=== PATIENT | male | born 1960 | race Caucasian/White ===

== ENCOUNTER 2019-10-12 10:45 | Inpatient (IN) | payer OTHER, SELFPAY ==
[2019-10-12] VITALS (9 sets, daily range): BP systolic 112–134; BP diastolic 69–76; PULSE 103–124; RESP 16–24; TEMP 36.7–37.3; O2SAT 93–99; BMI 28.0
--- NOTE | ~2019-10-12 | XR_ITS ---
XR chest 2V 10/15/2019 08:25 Indication: Pneumonia and cough Procedure: 2 view chest Comparison: 10/12/2019 Findings: No significant change to left upper lobe pneumonia. No pleural effusion, edema or pneumotho rax. No acute osseous abnormality. Impression: 1: No significant change to left upper lobe pneumonia. Reviewed, dictated and finalized at location A. Impression: 1: No significant change to left upper lobe pneumonia.
--- NOTE | ~2019-10-12 | CT_ITS ---
EXAMINATION: CTA chest DATE: 10/17/2019 17:34 CDT INDICATION: Right chest pain TECHNIQUE: Computed tomographic angiography (CTA) of the chest was performed with 100 mL Omnipaque-35 0 intravenous contrast. The dose-length product was 385.18 mGy-cm. Maximum intensity projection 3D-re constructions of the aorta and other arteries were constructed by the technologist on a separate work station. Automated exposure control and iterative reconstruction technique were employed. COMPARISON: Chest x-ray dated 10/17/2019 FINDINGS: There is patchy left upper lobe and bilateral lower lobe areas of airspace consolidation, c onsistent with pneumonia with probable superimposed atelectasis. Study is technically adequate withou t evidence for pulmonary embolism. Evaluation of subsegmental pulmonary arteries in the lower lobes l imited by motion. Small left pleural effusion. No significant pericardial effusion. No thoracic lymph adenopathy. No pneumothorax. There is a small right upper lobe nodule coronal image 47 measuring 3 mm , likely benign. Mild thoracic spondylosis with mild levoscoliosis. IMPRESSION: 1. Patchy bilateral airspace disease, most confluent in the left upper lobe, compatible with pneumoni a. 2: Small left pleural effusion. 3: 3 mm right upper lobe nodule, likely benign. Reviewed, dictated and finalized at location A. IMPRESSION: 1. Patchy bilateral airspace disease, most confluent in the left upper lobe, co mpatible with pneumonia. 2: Small left pleural effusion. 3: 3 mm right upper lobe nodule, likely benign.
--- NOTE | ~2019-10-12 | XR_ITS ---
EXAMINATION: XR chest 2V DATE: 10/12/2019 12:53 INDICATION: Left chest pain. Shortness of breath. TECHNIQUE: Frontal and lateral views of the chest were obtained. COMPARISON: CT abdomen and pelvis 01/12/2018 FINDINGS: There are airspace opacities in left mid and lower lung zones. No pleural effusion or pneum othorax. The heart size is normal. IMPRESSION: 1. Airspace opacities in left mid and lower lung zones, consistent with pneumonia. Reviewed, dictated and finalized at location A. FACTS CONSERVATOR IMPRESSION: 1. Airspace opacities in left mid and lower lung zones, consistent with pneumon ia.
--- NOTE | ~2019-10-12 | XR_ITS ---
XR chest 2V DATE: 10/17/2019 08:20 INDICATION: Dyspnea on exertion. Left chest pain. TECHNIQUE: PA and lateral views COMPARISON: 10/15/2019 PA and lateral chest 10/11/2021 view chest FINDINGS: There is persistent but minimally improved left upper lobe infiltrate since 10/15/2019. There is mild infiltrate and/atelectasis at both lung bases. Normal heart size. No hilar or mediastinal enlargement is evident. There is minimal if any pleural ef fusion. No pneumothorax. IMPRESSION: Persistent possibly minimally improved left upper lobe infiltrate since 10/15/2019, but def initely moderately improved since 10/12/2019 Mild bibasilar infiltrate and/atelectasis Reviewed, dictated and finalized at location A. IMPRESSION: Persistent possibly minimally improved left upper lobe infiltrate s dionte 10/15/2019, but definitely moderately improved since 10/12/2019 Mild bibasilar infiltrate and/atelectasis
--- NOTE | 2019-10-12 11:46 | ECG_ITS ---
Measurements Intervals [place] Rate: 112 P: 51 OK: 156 QRS: -33 QRSD: 86 T: 41 QT: 298 QTc: 408 Interpretive Statements SINUS TACHYCARDIA LEFT AXIS DEVIATION DELAYED PRECORDIAL R/S TRANSITION BORDERLINE T WAVE ABNORMALITY- DIFFUSE LEADS BASELINE WANDER- V4-V6 ABNORMAL ECG Electronically Signed On 10-12-2019 13:22:06 EXPORT FREIGHT MANAGER by Craig Ashford D.O.
--- NOTE | 2019-10-12 12:30 | ED.SOB ---
HPI - SOB/Dyspnea General Chief Complaint: Shortness of Breath/Dyspnea Stated Complaint: Cough, congestion Time Seen by Provider: 10/12/19 12:29 Source: patient Mode of arrival: ambulatory Limitations: no limitations History of Present Illness HPI Narrative: A 59 y/o male presents to the ED with c/o left sided CP. Pt states that on 10/10/19 he started to have chills. He took Aspirin and Advil with no relief. The night of 10/10/19 he woke up in a sweat. He adds that yesterday afternoon he started to have the left sided CP that has been constant since. The CP is aggravated with deep breaths and slightly alleviated with heat. He reports slight nonproductive cough, but denies fever. Pt is a former smoker. MD elicited complaint: chest pain (Left sided) Onset (ago): day(s) (1) Timing: constant Exacerbating factors: deep breaths Relieving factors: other (Heat) Associated symptoms: cough (Slight nonproductive) and other (Chills, night sweats) Related Data Allergies Allergy/AdvReac Type Severity Reaction Status Date / Time sulfamethizole Allergy Unknown Unknown Verified 11/22/17 15:09 sulfamethoxazole Allergy Unknown RASH Verified 08/29/18 16:26 trimethoprim Allergy Unknown Unknown Verified 11/22/17 15:09 Review of Systems Review of Systems: All systems reviewed & are unremarkable except as noted in HPI and below Constitutional: Constitutional: Reports chills, Denies fever(s) and Reports night sweats Cardiovascular: Cardiovascular: Reports chest pain (Left sided) Respiratory: Respiratory: Reports cough (Slight nonproductive) PMFSH Past Medical History Medical History (Updated 10/12/19 @ 15:57 by David Cummings MD) Bladder cancer History of chemotherapy Seasonal allergies Surgical History Surgical History (Updated 10/12/19 @ 13:29 by Flora Gaines) History of bladder surgery Resection History of colonoscopy Social History Social History (Updated 10/12/19 @ 13:30 by Flora Gaines) Smoking status: Former smoker Smoking end date: 08/08/15 Alcohol intake: current Exam Const: General: healthy appearing, no acute distress and well developed Nutritional Appearance: well nourished Orientation/consciousness: patient oriented x3 (alert) and Other orientation findings (Alert) Limitations: no limitations HENMT: Head: normocephalic and atraumatic Ears: external ears normal General nose exam: No nasal discharge present and no epistaxis Face and sinus: face symmetric Mouth: Yes lip normal, Yes tongue normal and Yes moist mucous membranes Throat: other (No exudate, no erythema) Eyes: Conjunctivae: conjunctivae normal Sclera: sclerae normal EOM: EOMs intact bilaterally Neck: Neck: full ROM, no lymphadenopathy and supple Thyroid: thyroid normal Chest: Chest palpation & inspection: no tenderness Resp: Effort & Inspection: normal respiratory effort Auscultation: no rales, rhonchi left lower, no wheezes and other (breath sounds equal) Cardio: Rate: tachycardic Rhythm: regular rhythm Heart sounds: no gallops and no murmurs GI: Inspection: non-distended GI Palp: No abdominal tenderness and Yes Soft to palpation Auscultation: other (bowel sounds present) : General: Yes no CVA tenderness Back/Spine/Pelvis: Back: no CVA tenderness Thoracic/Lumbar Spine: thoracic and lumbar spine normal to inspection Skin: General skin exam: normal color and no rashes or lesions noted Neuro: General: patient oriented x3 (alert), moves all extremities and no focal motor deficits Cranial nerves: Yes facial symmetry Speech: normal speech Motor exam (neuro): Motor abnormalities not present Extrem: General: normal to inspection, full ROM and no pedal edema Psych: Affect: normal affect Course Course Emergency Course: Recheck after fluids, BP OK, but remains tachy, and sats ~92-93 w/ ambulation Vital Signs Vital signs: Vital Signs Temperature 37.2 C 10/12/19 11:55 Pulse Rate 114 H 10/12/19 11:55 Respiratory Rate 22 H
[2019-10-12 13:05] LABS: Basophils Absolute Auto 0.1 K/mm3 (0.0-0.1); Basophils Percent Auto 0.6 % (0.2-1.2); Eosinophils Percent Auto 0.1 % (0-4.4); Hematocrit 37.1 % (42.0-52.0); Hemoglobin 12.5 g/dL (14.0-18.0); Immature Granulocyte Absolute 0.51 K/mm3 (0.00-0.031); Immature Granulocyte Percent A 3.7 % (0-0.5); Lymphocytes Absolute Auto 1.41 K/mm3 (0.9-3.2); Lymphocytes Percent Auto 10.1 % (18.3-44.2); Mean Corpuscular HGB Conc 33.7 g/dl (32-36); Mean Corpuscular Hemoglobin 30.7 pg (26-34); Mean Corpuscular Volume 91.2 fl (80-100); Mean Platelet Volume 10.8 fl (7.4-10.4); Monocytes Absolute Auto 0.5 K/mm3 (0.1-0.6); Monocytes Percent Auto 3.5 % (2.6-8.5); Neutrophils Absolute Auto 11.4 K/mm3 (1.3-6.7); Platelet Count Result 182 k/mm3 (150-375); Red Blood Count 4.07 M/mm3 (4.6-6.20); Red Cell Distribution Width 13.2 % (11.5-14.5)
[2019-10-12 13:16] LABS: Blood Urea Nitrogen 27 mg/dL (9-20); Calcium 8.6 mg/dL (8.4-10.2); Carbon Dioxide 25 mmol/L (22-30); Chloride 98 mmol/L (98-107); Estimated Glomerular Filt Rate > 60; Glucose 156 mg/dL (75-110); Potassium 3.5 mmol/L (3.4-5.0); Sodium 132 mmol/L (137-145)
[2019-10-12 13:28] LABS: Troponin I < 0.012 ng/mL (0.000-0.034)
[2019-10-12] MEDS: ALBUTEROL SULFATE NEB 2.5 MG/0.5 ML INH 5 MG INHALATION ×2 (13:44→18:55)
[2019-10-12 14:02] LABS: Lactic Acid Reflex 2.9 mmol/L (0.7-2.1)
[2019-10-12] MEDS: LACTATED RINGERS 1,000 ML 999 ML IV CONT ×3 (15:11→16:22)
[2019-10-12] MEDS: KETOROLAC 30 MG/ML VIAL (*BKC) IV PUSH (16:21)
[2019-10-12 16:49] LABS: Reflex Lactic Acid Yes or No Add Lactic
--- NOTE | 2019-10-12 17:13 | ADMGEN ---
This patient, David Leiva, was admitted to Medical Room 345-01. Patient/family oriented to hospital policies and general routines including ID bracelet, bed and alarms, visiting hours, pain management, procedures, bathroom and other care routines, personal items, smoking policy, room service/diet, and visiting hours. Valuables list has been completed. Information on how to activate the Rapid Response Team has been discussed. Patient/Family are encouraged to report perceived risks to care and to ask questions if they do not understand what they are told or what they should do.
[2019-10-12] MEDS: LACTATED RINGERS 1,000 ML 150 ML IV CONT (17:32)
[2019-10-12 18:32] LABS: Lactic Acid 2.3 mmol/L (0.7-2.1)
--- NOTE | 2019-10-12 20:00 | PM.IMHP ---
H&P: HPI History of Present Illness Chief complaint: Cough, congestion <Ngozi Adan PA-C - Last Filed: 10/12/19 22:34> Narrative: David Leiva is a very pleasant 59-year-old male with history of bladder cancer who presented to the emergency department earlier this afternoon via private vehicle from home for evaluation of shortness of breath and chest pain. Tuesday evening after he returned home from work he began to feel unwell, which generalized malaise, body aches, and chills. He assumed that he had a fever, and took Tylenol as well as Advil cold and sinus with some benefit. He had drenching sweats throughout the night. On , he began experiencing left-sided pleuritic chest pain, worse with deep inspiration. He also notes a mild cough, although it has been nonproductive. He was found to have a fairly large left-sided pneumonia and he is being admitted in this setting. He has not had sick contacts and denies recent travel. He does works in heating and cooling, and notes having works 3 jobs recently where there has been a lot of dust and/or debris. No headache or neck ache. He denies sinus congestion, otalgia, rhinorrhea, and odynophagia. No exertional chest pain. He denies orthopnea. Appetite has been okay and he denies nausea and vomiting. No diarrhea. No dysphagia or concerns for aspiration. <Ngozi Adan PA-C - Last Filed: 10/12/19 22:34> Review of Systems Review of Systems: Narrative: Twelve systems were reviewed with pertinent positives and negatives as per HPI. Except as documented, all other systems were reviewed and are negative. <Ngozi Adan PA-C - Last Filed: 10/12/19 22:34> [facility] Past Medical History Medical History: Medical History (Updated 10/12/19 @ 22:33 by Ngozi Adan PA-C) Bladder cancer Status post TURBT and intravesical chemotherapy. Seasonal allergies <Ngozi Adan PA-C - Last Filed: 10/12/19 22:34> Surgical History Surgical History: Surgical History (Updated 10/12/19 @ 22:29 by Ngozi Adan PA-C) History of colonoscopy S/P bladder tumor excision with fulguration <Ngozi Adan PA-C - Last Filed: 10/12/19 22:34> Family History Family History: Family History Father Cerebrovascular accident Mother Stomach cancer <Ngozi Adan PA-C - Last Filed: 10/12/19 22:34> Social History Social History: Social History (Updated 10/12/19 @ 22:30 by Ngozi Adan PA-C) Social History: The patient lives in his own home in [place]. His 89-year-old father stays there with him. He designates his brother is his surrogate decision maker and wishes to be a full code. He smoked about 3/4 of a pack of cigarettes per day for 30 years and quit in 2015. He drinks perhaps 6 alcoholic beverages a week. No drug use. Smoking packs per day: 0.75 Smoking cigarettes per day: 15.0 Years smoked: 30 Smoking pack-years: 22.50 Smoking status: Former smoker Tobacco type: cigarettes Smoking end date: 08/08/15 Alcohol intake: current Drinks per week: 6 Substance use: never Spiritual care concerns: No Agree to blood products: Yes <Ngozi Adan PA-C - Last Filed: 10/12/19 22:34> Meds Home Medications and Allergies Home medications: Home Medications Medication Instructions Recorded Confirmed Type No Home Medications 10/12/19 10/12/19 History <Ngozi Adan PA-C - Last Filed: 10/12/19 22:34> Allergies/Adverse reactions: Allergies Allergy/AdvReac Type Severity Reaction Status Date / Time sulfamethizole Allergy Unknown Unknown Verified 11/22/17 15:09 sulfamethoxazole Allergy Unknown RASH Verified 08/29/18 16:26 trimethoprim Allergy Unknown Unknown Verified 11/22/17 15:09 <Ngozi Adan PA-C - Last Filed: 10/12/19 22:34> Vital Signs Vital Signs - 24 hr 10/12/19 11:55
[2019-10-12] MEDS: FAMOTIDINE 20 MG/2 ML VIAL IV PUSH (20:31)
[2019-10-12] MEDS: ACETAMINOPHEN 325 MG TABLET 650 MG PO (23:32)
[2019-10-12] MEDS: LACTATED RINGERS 1,000 ML 90 ML IV CONT (23:48)
[2019-10-13] VITALS (12 sets, daily range): BP systolic 121–143; BP diastolic 76–89; PULSE 96–112; RESP 16–22; TEMP 37.1–37.6; O2SAT 93–95
[2019-10-13] MEDS: ALBUTEROL SULFATE NEB 2.5 MG/0.5 ML INH 5 MG INHALATION ×4 (01:34→19:53)
[2019-10-13 05:52] LABS: Basophils Absolute Auto 0.1 K/mm3 (0.0-0.1); Basophils Percent Auto 0.6 % (0.2-1.2); Eosinophils Absolute Auto 0.1 K/mm3 (0-0.3); Eosinophils Percent Auto 0.5 % (0-4.4); Hematocrit 34.9 % (42.0-52.0); Hemoglobin 11.6 g/dL (14.0-18.0); Immature Granulocyte Absolute 0.18 K/mm3 (0.00-0.031); Immature Granulocyte Percent A 1.3 % (0-0.5); Lymphocytes Absolute Auto 2.42 K/mm3 (0.9-3.2); Mean Corpuscular HGB Conc 33.2 g/dl (32-36); Mean Corpuscular Hemoglobin 30.8 pg (26-34); Mean Corpuscular Volume 92.6 fl (80-100); Mean Platelet Volume 10.4 fl (7.4-10.4); Monocytes Absolute Auto 0.6 K/mm3 (0.1-0.6); Monocytes Percent Auto 4.2 % (2.6-8.5); Neutrophils Absolute Auto 10.9 K/mm3 (1.3-6.7); Neutrophils Percent Auto 76.4 % (45.5-73.1); Platelet Count Result 186 k/mm3 (150-375); Red Blood Count 3.77 M/mm3 (4.6-6.20); Red Cell Distribution Width 13.3 % (11.5-14.5); White Blood Count 14.3 K/mm3 (4.5-10.0)
[2019-10-13 06:03] LABS: Lactic Acid 2.3 mmol/L (0.7-2.1)
[2019-10-13 06:05] LABS: Blood Urea Nitrogen 18 mg/dL (9-20); Calcium 8.7 mg/dL (8.4-10.2); Carbon Dioxide 28 mmol/L (22-30); Chloride 101 mmol/L (98-107); Estimated CRCL calculation 72 ml/min; Estimated Glomerular Filt Rate > 60; Glucose 117 mg/dL (75-110); Potassium 3.4 mmol/L (3.4-5.0); Sodium 134 mmol/L (137-145)
[2019-10-13] MEDS: FAMOTIDINE 20 MG/2 ML VIAL IV PUSH ×2 (08:03→20:52)
[2019-10-13] MEDS: ACETAMINOPHEN 325 MG TABLET 650 MG PO ×2 (13:33→23:42)
[2019-10-13] MEDS: LACTATED RINGERS 1,000 ML 90 ML IV CONT (15:03)
--- NOTE | 2019-10-13 16:48 | PM.IMPN ---
Progress Note: A&P Assessment and Plan (1) Sepsis: Code(s): A41.9 - Sepsis, unspecified organism Status: Acute Assessment and Plan: Present on admission and supported by fever, tachycardia, leukocytosis, and elevated lactic acid level. He has received IV fluid rehydration with improvement in lactic acid level. Blood cultures have been obtained and are pending. Vital signs are stable. 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 [employer] and since then he has developed cough shortness of breath his symptoms were persisting presented emergency department and is found to have pneumonia most likely community-acquired patient is being treated with Rocephin azithromycin patient states is feeling much better compared to when he arrived, his any chest pain shortness of breath palpitation fever or chills will continue to monitor repeat checks x-ray on Tuesday and further recommendation to follow (2) Community acquired pneumonia: Code(s): J18.9 - Pneumonia, unspecified organism Status: Acute Assessment and Plan: He has been started on azithromycin and ceftriaxone. Sputum to be attempted for culture. Will send specimens for urinary antigens. Mucinex and Cornet to help mobilize secretions. (3) Pleuritic chest pain: Code(s): R07.81 - Pleurodynia Status: Acute Assessment and Plan: Left-sided, secondary to pneumonia. Supportive care and analgesics as needed. 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 [employer] and since then he has developed cough shortness of breath his symptoms were persisting presented emergency department and is found to have pneumonia most likely community-acquired patient is being treated with Rocephin azithromycin patient states is feeling much better compared to when he arrived, his any chest pain shortness of breath palpitation fever or chills Review of Systems Review of Systems: All systems reviewed & are unremarkable except as noted in HPI and below Exam Const: General: comfortable and no acute distress HENMT: General nose exam: Normal nares present Mouth: Yes moist mucous membranes Eyes: General: appearance normal, both eyes and all related structures Sclera: sclerae normal Neck: Neck: supple Resp: Other: Bilateral fair air entry with rhonchi Cardio: Rate: regular rate Rhythm: regular rhythm GI: Auscultation: normal bowel sounds Skin: General skin exam: normal color and no rashes or lesions noted Neuro: Speech: normal speech Sensory Exam: normal sensation Extrem: General: normal to inspection Psych: Affect: Anxious affect present Objective Data Vital Signs Vital Signs: Vital Signs - 24 hr 10/12/19 18:56 10/12/19 19:04 10/12/19 21:42 Temperature 98.0 F 99.1 F Pulse Rate 115 H 106 H 103 H Respiratory Rate 18 18 16 Blood Pressure 134/73 120/69 Pulse Oximetry 97 95 10/13/19 01:36 10/13/19 01:46 10/13/19 05:55 Temperature 98.9 F Pulse Rate 102 H 106 H 101 H Respiratory Rate 18 18 18 Blood Pressure 124/76 Pulse Oximetry 93 10/13/19 09:46 10/13/19 09:52 10/13/19 14:00 Temperature 99.7 F H Pulse Rate 104 H 112 H 105 H Respiratory Rate 18 18 16 Blood Pressure 121/77 Pulse Oximetry 94 95 10/13/19 15:38 10/13/19 15:48 Temperature Pulse Rate 100 96 Respiratory Rate 18 18 Blood Pressure Pulse Oximetry Intake/Output Intake/Output: Intake & Output 10/10/19 10/11/19 10/12/19 10/13/19 23:59 23:59 23:59 23:59 Intake Total 4390 2910 Output Total 780 Balance 4390 2130 Meds/Results Medications: Active Medications Generic Name Dose Route Start Last Admin Trade Name Freq PRN Reason Stop Dose Admin Acetaminophen 650 mg
[2019-10-14] VITALS (14 sets, daily range): BP systolic 125–147; BP diastolic 77–85; PULSE 82–106; RESP 16–20; TEMP 36.7–37.7; O2SAT 93–97
[2019-10-14] MEDS: ALBUTEROL SULFATE NEB 2.5 MG/0.5 ML INH 5 MG INHALATION ×4 (01:34→20:25)
--- NOTE | 2019-10-14 03:00 | PCRCNOTE ---
Daylight Savings Time For Daylight Savings Time Ending in the Fall - Clocks are moved back. For Daylight Savings Time Beginning in the Spring - Clocks are moved ahead. For [facility], the time of change occurs at 0200 hrs. Time is taken from the office associate. This entry on the patient's chart recognizes the change in time reflected during documentation. Example: 2 entries for vital signs may be charted for 0200 hrs.
--- NOTE | 2019-10-14 03:10 | PC.NURSE ---
Daylight Savings Time For Daylight Savings Time Ending in the Fall - Clocks are moved back. For Daylight Savings Time Beginning in the Spring - Clocks are moved ahead. For [facility], the time of change occurs at 0200 hrs. Time is taken from the sql server architect. This entry on the patient's chart recognizes the change in time reflected during documentation. Example: 2 entries for vital signs may be charted for 0200 hrs.
[2019-10-14] MEDS: LACTATED RINGERS 1,000 ML 90 ML IV CONT ×2 (05:09→19:15)
[2019-10-14 06:18] LABS: Hematocrit 32.3 % (42.0-52.0); Hemoglobin 10.9 g/dL (14.0-18.0); Mean Corpuscular HGB Conc 33.7 g/dl (32-36); Mean Corpuscular Hemoglobin 31.2 pg (26-34); Mean Corpuscular Volume 92.6 fl (80-100); Mean Platelet Volume 10.4 fl (7.4-10.4); Platelet Count Result 217 k/mm3 (150-375); Red Blood Count 3.49 M/mm3 (4.6-6.20); Red Cell Distribution Width 13.7 % (11.5-14.5); White Blood Count 13.8 K/mm3 (4.5-10.0)
[2019-10-14] MEDS: POTASSIUM CHLORIDE 20 MEQ PACKET (FOR LIQUID) 40 MEQ PO (08:53)
[2019-10-14] MEDS: FAMOTIDINE 20 MG/2 ML VIAL IV PUSH ×2 (08:54→21:26)
[2019-10-14] MEDS: ACETAMINOPHEN 325 MG TABLET 650 MG PO (14:49)
--- NOTE | 2019-10-14 14:54 | PM.IMPN ---
Progress Note: A&P Assessment and Plan (1) Sepsis: Code(s): A41.9 - Sepsis, unspecified organism Status: Acute Assessment and Plan: Present on admission and supported by fever, tachycardia, leukocytosis, and elevated lactic acid level. He has received IV fluid rehydration with improvement in lactic acid level. Blood cultures have been obtained and are pending. Vital signs are stable. 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 [employer] and since then he has developed cough shortness of breath his symptoms were persisting presented emergency department and is found to have pneumonia most likely community-acquired patient is being treated with Rocephin azithromycin today again patient states is feeling much better compared to when he arrived, he denies any chest pain shortness of breath palpitation fever or chills will continue to monitor repeat checks x-ray on Tuesday and further recommendation to follow (2) Community acquired pneumonia: Code(s): J18.9 - Pneumonia, unspecified organism Status: Acute Assessment and Plan: He has been started on azithromycin and ceftriaxone. Sputum to be attempted for culture. Will send specimens for urinary antigens. Mucinex and Cornet to help mobilize secretions. (3) Pleuritic chest pain: Code(s): R07.81 - Pleurodynia Status: Acute Assessment and Plan: Left-sided, secondary to pneumonia. Supportive care and analgesics as needed. 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 [employer] and since then he has developed cough shortness of breath his symptoms were persisting presented emergency department and is found to have pneumonia most likely community-acquired patient is being treated with Rocephin azithromycin today again patient states is feeling much better compared to when he arrived, he denies any chest pain shortness of breath palpitation fever or chills will continue to monitor repeat checks x-ray on Tuesday and further recommendation to follow Review of Systems Review of Systems: All systems reviewed & are unremarkable except as noted in HPI and below Exam Const: General: comfortable and no acute distress HENMT: General nose exam: Normal nares present Mouth: Yes moist mucous membranes Eyes: General: appearance normal, both eyes and all related structures Neck: Neck: supple Resp: Other: Bilateral fair air entry with rhonchi Cardio: Rate: regular rate Rhythm: regular rhythm GI: Auscultation: normal bowel sounds Skin: General skin exam: normal color and no rashes or lesions noted Neuro: Speech: normal speech Sensory Exam: normal sensation Extrem: General: normal to inspection Psych: Mental Status: mental status grossly normal Affect: normal affect Objective Data Vital Signs Vital Signs: Vital Signs - 24 hr 10/13/19 14:00 10/13/19 15:38 10/13/19 15:48 Temperature 99.7 F H Pulse Rate 105 H 100 96 Respiratory Rate 16 18 18 Blood Pressure 121/77 Pulse Oximetry 95 10/13/19 19:54 10/13/19 20:07 10/13/19 21:45 Temperature Pulse Rate 100 98 101 H Respiratory Rate 18 18 22 H Blood Pressure Pulse Oximetry 95 95 10/13/19 22:00 10/14/19 01:34 10/14/19 01:43 Temperature 98.7 F Pulse Rate 101 H 90 92 Respiratory Rate 22 H 18 18 Blood Pressure 143/89 H Pulse Oximetry 95 10/14/19 05:18 10/14/19 08:24 10/14/19 08:34 Temperature 98.0 F Pulse Rate 82 88 91 Respiratory Rate 20 20 20 Blood Pressure 125/78 Pulse Oximetry 95 93 10/14/19 14:00 10/14/19 14:01 10/14/19 14:49 Temperature 99.9 F H 99.9 F H Pulse Rate 106 H 86 Respiratory Rate 18 18 Blood Pressure 147/77 H Pulse Oximetry 97 Intake/Output Intake/Outp
[2019-10-15] VITALS (12 sets, daily range): BP systolic 109–146; BP diastolic 70–85; PULSE 77–90; RESP 16–20; TEMP 36.4–36.9; O2SAT 94–98
[2019-10-15] MEDS: ACETAMINOPHEN 325 MG TABLET 650 MG PO ×4 (01:59→21:16)
[2019-10-15] MEDS: ALBUTEROL SULFATE NEB 2.5 MG/0.5 ML INH 5 MG INHALATION ×4 (02:32→21:49)
[2019-10-15 06:12] LABS: Mean Corpuscular HGB Conc 33.3 g/dl (32-36); Mean Corpuscular Hemoglobin 30.8 pg (26-34); Mean Corpuscular Volume 92.4 fl (80-100); Mean Platelet Volume 9.9 fl (7.4-10.4); Platelet Count Result 269 k/mm3 (150-375); Red Blood Count 3.57 M/mm3 (4.6-6.20); Red Cell Distribution Width 13.8 % (11.5-14.5); White Blood Count 12.4 K/mm3 (4.5-10.0)
[2019-10-15] MEDS: LACTATED RINGERS 1,000 ML 90 ML IV CONT (07:57)
[2019-10-15] MEDS: FAMOTIDINE 20 MG/2 ML VIAL IV PUSH ×2 (07:59→21:16)
[2019-10-15 09:57] LABS: Hematocrit 34.2 % (42.0-52.0); Hemoglobin 11.1 g/dL (14.0-18.0); Mean Corpuscular HGB Conc 32.5 g/dl (32-36); Mean Corpuscular Hemoglobin 30.1 pg (26-34); Mean Corpuscular Volume 92.7 fl (80-100); Platelet Count Result 258 k/mm3 (150-375); Red Blood Count 3.69 M/mm3 (4.6-6.20); White Blood Count 11.2 K/mm3 (4.5-10.0)
[2019-10-15 10:09] LABS: Blood Urea Nitrogen 14 mg/dL (9-20); Calcium 8.8 mg/dL (8.4-10.2); Carbon Dioxide 27 mmol/L (22-30); Chloride 104 mmol/L (98-107); Estimated CRCL calculation 79 ml/min; Estimated Glomerular Filt Rate > 60; Glucose 146 mg/dL (75-110); Potassium 3.9 mmol/L (3.4-5.0); Sodium 138 mmol/L (137-145)
--- NOTE | 2019-10-15 16:04 | PM.IMPN ---
Progress Note: A&P Assessment and Plan (1) Sepsis: Code(s): A41.9 - Sepsis, unspecified organism Status: Acute Assessment and Plan: Present on admission and supported by fever, tachycardia, leukocytosis, and elevated lactic acid level. He has received IV fluid rehydration with improvement in lactic acid level. Blood cultures have been obtained and are pending. Vital signs are stable. 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 [employer] and since then he has developed cough shortness of breath his symptoms were persisting presented emergency department and is found to have pneumonia most likely community-acquired patient is being treated with Rocephin azithromycin today again patient states is feeling much better compared to when he arrived, he denies any chest pain shortness of breath palpitation fever or chills, today repeat chest x-ray shows persistent consolidation patient denies any cough shortness of breath fever or chills, will stop Rocephin and add Zosyn and vancomycin will continue management for 2 days and repeat chest x-ray. (2) Community acquired pneumonia: Code(s): J18.9 - Pneumonia, unspecified organism Status: Acute Assessment and Plan: He has been started on azithromycin and ceftriaxone. Sputum to be attempted for culture. Will send specimens for urinary antigens. Mucinex and Cornet to help mobilize secretions. (3) Pleuritic chest pain: Code(s): R07.81 - Pleurodynia Status: Acute Assessment and Plan: Left-sided, secondary to pneumonia. Supportive care and analgesics as needed. 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 [employer] and since then he has developed cough shortness of breath his symptoms were persisting presented emergency department and is found to have pneumonia most likely community-acquired patient is being treated with Rocephin azithromycin today again patient states is feeling much better compared to when he arrived, he denies any chest pain shortness of breath palpitation fever or chills, today repeat chest x-ray shows persistent consolidation patient denies any cough shortness of breath fever or chills, will stop Rocephin and add Zosyn and vancomycin will continue management for 2 days and repeat chest x-ray. Review of Systems Review of Systems: All systems reviewed & are unremarkable except as noted in HPI and below Exam Const: General: comfortable and no acute distress HENMT: General nose exam: Normal nares present Mouth: Yes moist mucous membranes Eyes: General: appearance normal, both eyes and all related structures Sclera: sclerae normal Neck: Neck: supple Resp: Other: Bilateral fair air entry with rhonchi GI: Auscultation: normal bowel sounds Skin: General skin exam: normal color and no rashes or lesions noted Neuro: Speech: normal speech Sensory Exam: normal sensation Extrem: General: normal to inspection Psych: Mental Status: mental status grossly normal Affect: normal affect Objective Data Vital Signs Vital Signs: Vital Signs - 24 hr 10/14/19 20:25 10/14/19 21:06 10/14/19 21:26 Temperature Pulse Rate 89 90 93 Respiratory Rate 18 18 16 Blood Pressure Pulse Oximetry 97 10/14/19 22:00 10/15/19 02:32 10/15/19 02:41 Temperature 98.6 F Pulse Rate 93 77 88 Respiratory Rate 16 18 18 Blood Pressure 141/85 H Pulse Oximetry 97 10/15/19 03:20 10/15/19 06:00 10/15/19 08:33 Temperature 98.5 F Pulse Rate 78 77 90 Respiratory Rate 20 16 20 Blood Pressure 109/70 Pulse Oximetry 94 97 10/15/19 08:46 10/15/19 14:00 10/15/19 14:56 Temperature 97.6 F Pulse Rate 89 86 86 Respiratory Rate 20 18 20 Blood Pressure 132/85 Pulse
[2019-10-16] VITALS (11 sets, daily range): BP systolic 110–141; BP diastolic 68–87; PULSE 82–97; RESP 14–20; TEMP 36.3–36.4; O2SAT 95–99
[2019-10-16] MEDS: ACETAMINOPHEN 325 MG TABLET 650 MG PO ×3 (02:22→19:00)
[2019-10-16] MEDS: LACTATED RINGERS 1,000 ML 90 ML IV CONT (02:23)
[2019-10-16] MEDS: ALBUTEROL SULFATE NEB 2.5 MG/0.5 ML INH 5 MG INHALATION ×4 (02:50→21:36)
[2019-10-16 05:39] LABS: Hematocrit 33.5 % (42.0-52.0); Hemoglobin 11.1 g/dL (14.0-18.0); Mean Corpuscular HGB Conc 33.1 g/dl (32-36); Mean Corpuscular Hemoglobin 30.7 pg (26-34); Mean Corpuscular Volume 92.8 fl (80-100); Platelet Count Result 288 k/mm3 (150-375); Red Blood Count 3.61 M/mm3 (4.6-6.20); White Blood Count 10.6 K/mm3 (4.5-10.0)
[2019-10-16] MEDS: FAMOTIDINE 20 MG/2 ML VIAL IV PUSH ×2 (08:39→20:00)
[2019-10-16 12:09] LABS: Legionella pneumophila Ag Ur Not Detected (Not Detected)
[2019-10-16 16:27] LABS: Pneumococcal Antigen Urine Not Detected (Not Detected)
--- NOTE | 2019-10-16 17:26 | PM.IMPN ---
Progress Note: A&P Assessment and Plan (1) Sepsis: Code(s): A41.9 - Sepsis, unspecified organism Status: Acute Assessment and Plan: Present on admission and supported by fever, tachycardia, leukocytosis, and elevated lactic acid level. He has received IV fluid rehydration with improvement in lactic acid level. Blood cultures have been obtained and are pending. Vital signs are stable. 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 [employer] and since then he has developed cough shortness of breath his symptoms were persisting presented emergency department and is found to have pneumonia most likely community-acquired patient is being treated with Rocephin azithromycin today again patient states is feeling much better compared to when he arrived, he denies any chest pain shortness of breath palpitation fever or chills, on 10/14 repeat chest x-ray showed persistent consolidation patient denies any cough shortness of breath fever or chills, stopped Rocephin and added Zosyn and vancomycin, today patient is feeling better his been ambulating in the corridor without any complaints of cough shortness of breath fever or chills will repeat chest x-ray tomorrow and further recommendation to follow (2) Community acquired pneumonia: Code(s): J18.9 - Pneumonia, unspecified organism Status: Acute Assessment and Plan: He has been started on azithromycin and ceftriaxone. Sputum to be attempted for culture. Will send specimens for urinary antigens. Mucinex and Cornet to help mobilize secretions. (3) Pleuritic chest pain: Code(s): R07.81 - Pleurodynia Status: Acute Assessment and Plan: Left-sided, secondary to pneumonia. Supportive care and analgesics as needed. 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 [employer] and since then he has developed cough shortness of breath his symptoms were persisting presented emergency department and is found to have pneumonia most likely community-acquired patient is being treated with Rocephin azithromycin today again patient states is feeling much better compared to when he arrived, he denies any chest pain shortness of breath palpitation fever or chills, on 10/14 repeat chest x-ray showed persistent consolidation patient denies any cough shortness of breath fever or chills, stopped Rocephin and added Zosyn and vancomycin, today patient is feeling better his been ambulating in the corridor without any complaints of cough shortness of breath fever or chills will repeat chest x-ray tomorrow and further recommendation to follow Review of Systems Review of Systems: All systems reviewed & are unremarkable except as noted in HPI and below Exam Const: General: comfortable and no acute distress HENMT: General nose exam: Normal nares present Mouth: Yes moist mucous membranes Eyes: General: appearance normal, both eyes and all related structures Sclera: sclerae normal Neck: Neck: supple Cardio: Rate: regular rate Rhythm: regular rhythm GI: Auscultation: normal bowel sounds Skin: General skin exam: normal color and no rashes or lesions noted Neuro: Speech: normal speech Sensory Exam: normal sensation Extrem: General: normal to inspection Psych: Mental Status: mental status grossly normal Affect: normal affect Objective Data Vital Signs Vital Signs: Vital Signs - 24 hr 10/15/19 21:00 10/15/19 21:09 10/15/19 21:50 Temperature 98 F Pulse Rate 90 88 88 Respiratory Rate 16 16 16 Blood Pressure 146/84 H Pulse Oximetry 97 97 97 10/15/19 22:00 10/16/19 02:50 10/16/19 05:02 Temperature 97.6 F Pulse Rate 90 82 84 Respiratory Rate 16 16 14 Blood Pressure 123/69 Pulse Oximetry 96 10/15
[2019-10-16 23:43] LABS: Vancomycin Trough 11.4 ug/mL (10.0-20.0)
[2019-10-17] VITALS (10 sets, daily range): BP systolic 138–151; BP diastolic 73–87; PULSE 79–91; RESP 16–18; TEMP 36.6–37.1; O2SAT 94–96
[2019-10-17] MEDS: ALBUTEROL SULFATE NEB 2.5 MG/0.5 ML INH 5 MG INHALATION ×4 (03:38→20:39)
[2019-10-17 05:52] LABS: Hematocrit 36.3 % (42.0-52.0); Hemoglobin 11.9 g/dL (14.0-18.0); Mean Corpuscular HGB Conc 32.8 g/dl (32-36); Mean Corpuscular Hemoglobin 30.7 pg (26-34); Mean Corpuscular Volume 93.8 fl (80-100); Mean Platelet Volume 9.6 fl (7.4-10.4); Platelet Count Result 371 k/mm3 (150-375); Red Blood Count 3.87 M/mm3 (4.6-6.20); Red Cell Distribution Width 14.1 % (11.5-14.5)
[2019-10-17] MEDS: FAMOTIDINE 20 MG/2 ML VIAL IV PUSH ×2 (08:01→21:21)
--- NOTE | 2019-10-17 10:35 | PM.IMPN ---
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 As per previous notes. CT chest and ID consultation ordered. (2) Community acquired pneumonia: Code(s): J18.9 - Pneumonia, unspecified organism Status: Acute Assessment and Plan: As above (3) Pleuritic chest pain: Code(s): R07.81 - Pleurodynia Status: Acute Assessment and Plan: Left-sided, secondary to pneumonia. Rule out PE with CTA Subjective Date/time seen: 10/17/19 10:35 Interval history: 59-year-old male with history of bladder cancer who presented to the emergency department earlier this afternoon via private vehicle from home for evaluation of shortness of breath and chest pain. found to have pneumonia most likely community-acquired patient is being treated with Rocephin azithromycin today again patient states is feeling much better compared to when he arrived, he denies any chest pain shortness of breath palpitation fever or chills, on 10/14 repeat chest x-ray showed persistent consolidation patient denies any cough shortness of breath fever or chills, stopped Rocephin and added Zosyn and vancomycin. Rpt cxr still shows pneumonia. Pt will need CT chest and ID consultation, Wcc still elevated. Review of Systems Review of Systems: All systems reviewed & are unremarkable except as noted in HPI and below Exam Const: General: comfortable and no acute distress HENMT: General nose exam: Normal nares present Mouth: Yes moist mucous membranes Eyes: General: appearance normal, both eyes and all related structures Sclera: sclerae normal Neck: Neck: supple Resp: Other: Bilateral fair air entry with rhonchi Cardio: Rate: regular rate Rhythm: regular rhythm GI: Auscultation: normal bowel sounds Skin: General skin exam: normal color and no rashes or lesions noted Neuro: Speech: normal speech Sensory Exam: normal sensation Extrem: General: normal to inspection Psych: Mental Status: mental status grossly normal Affect: normal affect Objective Data Vital Signs Vital Signs: Vital Signs - 24 hr 10/16/19 14:00 10/16/19 14:42 10/16/19 14:48 Temperature 36.4 C Pulse Rate 87 88 82 Respiratory Rate 18 18 18 Blood Pressure 110/68 Pulse Oximetry 97 10/16/19 21:31 10/16/19 21:38 10/16/19 21:39 Temperature 36.3 C L Pulse Rate 92 84 Respiratory Rate 18 20 Blood Pressure 141/87 H Pulse Oximetry 99 95 10/16/19 21:49 10/17/19 03:38 10/17/19 03:48 Temperature Pulse Rate 87 79 83 Respiratory Rate 20 18 18 Blood Pressure Pulse Oximetry 10/17/19 05:13 Temperature 37.1 C Pulse Rate 89 Respiratory Rate 16 Blood Pressure 138/73 Pulse Oximetry 94 Intake/Output Intake/Output: Intake & Output 10/14/19 10/15/19 10/16/19 10/17/19 23:59 23:59 23:59 23:59 Intake Total 3190 4575 900 Output Total 3350 5050 1550 Balance -884 -657 -609 Meds/Results Medications: Active Medications Generic Name Dose Route Start Last Admin Trade Name Freq PRN Reason Stop Dose Admin Acetaminophen 650 mg 10/12/19 15:51 10/16/19 19:00 Tylenol Tablet PO 650 mg Q4H PRN Administration Mild Pain
[2019-10-17 12:02] LABS: Creatine Kinase 51 U/L (55-170)
[2019-10-17 15:13] LABS: Blood Urea Nitrogen 13 mg/dL (9-20); Estimated CRCL calculation 72 ml/min; Estimated Glomerular Filt Rate > 60
[2019-10-18] VITALS (9 sets, daily range): BP systolic 120–121; BP diastolic 72–74; PULSE 76–97; RESP 16–18; TEMP 36.6–36.7; O2SAT 95–96
[2019-10-18] MEDS: ALBUTEROL SULFATE NEB 2.5 MG/0.5 ML INH 5 MG INHALATION ×3 (02:50→14:49)
[2019-10-18 06:21] LABS: Hematocrit 37.4 % (42.0-52.0); Hemoglobin 12.2 g/dL (14.0-18.0); Mean Corpuscular HGB Conc 32.6 g/dl (32-36); Mean Corpuscular Hemoglobin 30.3 pg (26-34); Mean Corpuscular Volume 92.8 fl (80-100); Mean Platelet Volume 9.4 fl (7.4-10.4); Platelet Count Result 388 k/mm3 (150-375); Red Blood Count 4.03 M/mm3 (4.6-6.20); White Blood Count 11.1 K/mm3 (4.5-10.0)
[2019-10-18 06:44] LABS: Estimated CRCL calculation 72 ml/min; Estimated Glomerular Filt Rate > 60
[2019-10-18] MEDS: FAMOTIDINE 20 MG/2 ML VIAL IV PUSH (08:43)
--- NOTE | 2019-10-18 12:46 | PM.DS ---
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 As per previous notes. CT chest. which showed - Patchy bilateral airspace disease, most confluent in the left upper lobe, compatible with pneumonia. 2: Small left pleural effusion. 3: 3 mm right upper lobe nodule, likely benign. Pt feels alot better today stable for discharge. Pt has been on 4 IV Zosyn and vancomycin, levaquin and azithromycin- but did not have BC drawn on admission since viral pneumonia was suspected intially. I feel pt is stable for discharge on levaquin orally for another [address] Escudero agrees pt is stable for discharge although did not formally consult. Long discussion about ABX and causes of pneumonia, pt to be off work until october 26. As his work involves fumes. (2) Community acquired pneumonia: Code(s): J18.9 - Pneumonia, unspecified organism Status: Acute Assessment and Plan: As above (3) Pleuritic chest pain: Code(s): R07.81 - Pleurodynia Status: Resolved Assessment and Plan: Left-sided, secondary to pneumonia. Ruled out PE with CTA DS: Summary Time Spent with Patient Time attestation: Total time spent providing and/or coordinating discharge services:38 minutes on day of discharge Exam Const: General: comfortable and no acute distress HENMT: General nose exam: Normal nares present Mouth: Yes moist mucous membranes Eyes: General: appearance normal, both eyes and all related structures Sclera: sclerae normal Neck: Neck: supple Resp: Other: Clear Cardio: Rate: regular rate Rhythm: regular rhythm GI: Auscultation: normal bowel sounds Skin: General skin exam: normal color and no rashes or lesions noted Neuro: Speech: normal speech Sensory Exam: normal sensation Extrem: General: normal to inspection Psych: Mental Status: mental status grossly normal Affect: normal affect DS: Data Data Completed and Pending Labs on day of discharge: Labs from last 24 hours 10/18/19 10/18/19 10/17/19 05:41 05:41 11:20 WBC 11.1 H RBC 4.03 L Hgb 12.2 L Hct 37.4 L MCV 92.8 MCH 30.3 MCHC 32.6 RDW 14.0 Plt Count 388 H MPV 9.4 BUN 13 Creatinine 1.10 1.10 Estim Creat Clear Calc 72 72 Estimated GFR > 60 > 60 Discharge Plan Discharge Attending physician on discharge: Katheryn Mosher Discharging Clinician: Katheryn Mosher Anticipated Discharge Date/Time: 10/18/19 12:52 Patient Disposition: Home, Self-Care Activity: as tolerated Diet: regular Patient Instructions: Antibiotic Form, Viral Pneumonia (DC), Pain Management (DC) Stand Alone Forms: General Discharge Information, Work/School Release IP Follow-up/Referrals: Emanuel Inman MD [Primary Care Provider] - Discharge Medications: New levofloxacin [Levaquin] 500 mg tablet 500 mg PO DAILY Qty: 8 RF: 0 Date of admission: 10/12/19 16:09 Primary Care Provider: Emanuel Inman Admitting Provider: Catracho Zaragoza Discharge Date/Time: 10/18/19 18:50 Attending physician on
--- NOTE | 2019-10-18 14:38 | WPDPN ---
Objective Data Vital Signs Vital Signs: Vital Signs - 24 hr 10/17/19 14:46 10/17/19 14:51 10/17/19 15:11 Temperature 37.1 C Pulse Rate 82 89 91 Respiratory Rate 18 18 16 Blood Pressure 151/87 H Pulse Oximetry 94 10/17/19 20:00 10/17/19 20:32 10/17/19 20:41 Temperature 36.6 C Pulse Rate 86 88 83 Respiratory Rate 18 16 18 Blood Pressure 144/85 H Pulse Oximetry 96 96 10/17/19 20:51 10/18/19 02:51 10/18/19 02:56 Temperature Pulse Rate 86 80 84 Respiratory Rate 18 18 18 Blood Pressure Pulse Oximetry 10/18/19 05:34 10/18/19 08:52 10/18/19 09:41 Temperature 36.6 C Pulse Rate 84 76 88 Respiratory Rate 16 16 18 Blood Pressure 120/74 Pulse Oximetry 95 95 10/18/19 09:49 Temperature Pulse Rate 85 Respiratory Rate 18 Blood Pressure Pulse Oximetry Intake/Output Intake/Output: Intake & Output 10/15/19 10/16/19 10/17/19 10/18/19 23:59 23:59 23:59 23:59 Intake Total 3190 4575 4360 2760 Output Total 3350 5050 3950 1500 Balance -160 -769 770 0083 Meds/Results Medications: Active Medications Generic Name Dose Route Start Last Admin Trade Name Freq PRN Reason Stop Dose Admin Acetaminophen 650 mg 10/12/19 15:51 10/16/19 19:00 Tylenol Tablet PO 650 mg Q4H PRN Administration Mild Pain (1-3) or Fever Albuterol 5 mg 10/12/19 20:00 10/18/19 09:41 Albuterol Sulf Neb 2.5mg/0.5ml INHALATION 5 mg Q6HRT MATTY Administration Famotidine 20 mg 10/12/19 21:00 10/18/19 08:43 Pepcid Iv IV PUSH 20 mg Q12HR MATTY Administration Guaifenesin 600 mg 10/12/19 22:45 10/18/19 08:43 Mucinex 12 Hr Tab PO 600 mg Q12HR MATTY Administration Levofloxacin/Dextrose 750 mg in 150 mls @ 100 mls/hr 10/13/19 14:00 10/18/19 13:52 Levaquin 750 Mg/D5w 150 Ml IVPB 100 mls/hr DAILY@1400 MATTY Administration Azithromycin 500 mg in 250 mls @ 250 mls/hr 10/14/19 22:00 10/17/19 22:54 Zithromax IVPB Infused DAILY@2200 MATTY Infusion Piperacillin/Tazobactam/Dextrose 3.375 gm in 50 mls @ 100 mls/hr 10/15/19 12:00 10/18/19 13:05 Zosyn 3.375 Gm/D5w 50ml Pm IVPB Infused Q6H MATTY Infusion Vancomycin HCl 1,500 mg in 500 mls @ 333.333 mls/hr 10/15/19 11:00 10/18/19 12:31 Vancomycin 1,500 Mg/D5w 500 Ml IVPB Infused Q12H MATTY Infusion Ondansetron HCl 4 mg 10/12/19 15:51 Zofran Inj IV PUSH Q4H PRN Nausea Radiology Results: ITS Impressions Chest X-Ray 10/17/19 08:21 IMPRESSION: Persistent possibly minimally improved left upper lobe infiltrate since 10/15/2019, but definitely moderately improved since 10/12/2019 Mild bibasilar infiltrate and/atelectasis Chest CTA 10/17/19 17:34 IMPRESSION: 1. Patchy bilateral airspace disease, most confluent in the left upper lobe, compatible with pneumonia. 2: Small left pleural effusion. 3: 3 mm right upper lobe nodule, likely benign. Labs Labs: Laboratory Results - last 24 hr 10/17/19 10/18/19 10/18/19 11:20 05:41 05:41 WBC 11.1 H RBC 4.03 L Hgb 12.2 L Hct 37.4 L MCV 92.8 MCH 30.3 MCHC 32.6 RDW 14.0 Plt Count 388 H MPV 9.4 BUN 13 Creatinine 1.10 1.10 Estim Creat Clear Calc 72 72 Estimated GFR > 60 > 60 Quality VTE Prophylaxis VTE prophylaxis: mechanical ordered
== END 2019-10-18 18:50 | disposition home or self-care (01) | DRG 871 ==
LOC: ANHED 15:59 → ANH3MED 18:03
PROVIDERS: Emergency Medicine; Physician Assistant; Admitting Provider Family Medicine; Emergency Provider Emergency Medicine; PCP Family Medicine; Visit Provider Family Medicine
DX: A41.9 Sepsis, unspecified organism (principal); J18.9 Pneumonia, unspecified organism; Z28.21 Immunization not carried out because of patient refusal; Z85.51 Personal history of malignant neoplasm of bladder; Z92.21 Personal history of antineoplastic chemotherapy; Z87.891 Personal history of nicotine dependence; R07.81 Pleurodynia
CPT/HCPCS: 36415; 71046; 71275; 80048; 80202; 82550; 82565; 83605; 84484; 84520; 85025; 85027; 87070; 87205; 87449; 87804; 87899; 93005; 94640; 94667; 94668; 96361; 96365; 96375; 99285; A9270; J0456; J0696; J1885; J1956; J2543; J3370; J7120; Q9967

== ENCOUNTER 2020-04-28 15:00 | Outpatient (CLI) | payer OTHER, SELFPAY ==
--- NOTE | ~2020-04-28 | XR_ITS ---
EXAMINATION: XR thoracic spine min 4V DATE: 04/28/2020 15:42 INDICATION: Thoracic back pain TECHNIQUE: AP, lateral, bilateral oblique, and lateral swimmer's views of the thoracic spine were obt ained. COMPARISON: CT, 10/17/2019 FINDINGS: There is no fracture. The vertebral body heights and alignment are normal. There is mild lo ss of intervertebral disc space height at a few levels in the mid and lower thoracic spine. Small deg enerative osteophytes project from the anterior endplates of multiple vertebral bodies. IMPRESSION: 1. Mild thoracic spondylosis without acute findings. Reviewed, dictated and finalized at location A.
== END 2020-04-28 15:01 | disposition home or self-care (01) ==
PROVIDERS: PCP Family Medicine; Visit Provider Family Medicine
DX: M47.894 Other spondylosis, thoracic region (principal)
CPT/HCPCS: 72074

== ENCOUNTER 2022-08-31 21:28 | Outpatient (NON) | payer OTHER, SELFPAY | END 2022-08-31 21:29 | disposition home or self-care (01) | LOC: ANHLAB 21:30 | PROVIDERS: PCP Family Medicine; Visit Provider Family Medicine | DX: N39.0 Urinary tract infection, site not specified (principal) | CPT/HCPCS: 87077; 87086; 87186 ==

== ENCOUNTER → 2023-05-12 15:13 | Outpatient (CLI) | payer OTHER, SELFPAY ==
--- NOTE | ~2023-05-12 | XR_ITS ---
XR hip BI 2V w AP pelvis DATE: 05/12/2023 15:29 INDICATION: Bilateral hip pain TECHNIQUE: AP pelvis. AP and lateral views of each hip. COMPARISON: None FINDINGS: Normal alignment at the pubic symphysis and sacroiliac joints. Hip joint spaces appear symm etric and relatively well preserved. No fracture or dislocation, avascular necrosis or bone destructi on of either hip is detected. No pelvic fracture or bone destruction. IMPRESSION: No significant abnormality of the hips Reviewed, dictated and finalized at location L.
== END ==
PROVIDERS: PCP Family Medicine; Visit Provider Family Medicine
DX: G89.29 Other chronic pain (principal); M25.551 Pain in right hip; M25.552 Pain in left hip
CPT/HCPCS: 73521

== ENCOUNTER 2024-12-05 08:11 | Outpatient (CLI) | payer BC, SELFPAY ==
--- NOTE | ~2024-12-05 | CT_ITS ---
CT Scan of the Chest without Contrast: Clinical Indication: Lung cancer screening, nicotine dependence Technique: Contiguous sections were acquired throughout the chest without intravenous contrast. Dose reduction technique was used on this scan by utilizing automated exposure control and iterative recon struction technique. The dose-length product (DLP) was 100.38 mGy-cm. Findings: There is no evidence of any significant mediastinal, hilar or axillary lymphadenopathy. The mediastin al soft tissues appear normal. There is no evidence of pleural or pericardial effusion. Large calcified left lower lobe granuloma present. There is linear bibasilar scarring or atelectasis. 4 mm lingular nodule present (axial image 87). Images through the upper abdomen reveal no abnormalities. Impression: Lung RADS 2: Benign appearance. 12 month follow-up screening CT advised. Reviewed, dictated and finalized at [facility]. Impression: Lung RADS 2: Benign appearance. 12 month follow-up screening CT advised.
== END 2024-12-05 08:12 | disposition home or self-care (01) ==
LOC: GOSHIMG 08:11
PROVIDERS: PCP Family Medicine; Visit Provider Family Medicine
DX: Z12.2 Encounter for screening for malignant neoplasm of respiratory organs (principal); Z87.891 Personal history of nicotine dependence
CPT/HCPCS: 71271

== ENCOUNTER 2025-03-13 00:31 | Day surgery (SDC) | payer BC, SELFPAY ==
[2025-02-27 08:41] VITALS: BMI 27.1
--- OUTSIDE RECORDS SUMMARY | 2025-03-13 00:35 | XMS_ITS | Clinical Summary ---
Author Organization [facility] Address [address] [place] [address] Phone Care Team Providers Care Janitorial Cleaner Name Role Phone Keven Inman MD Primary Care Provider Mike Austin MD Unavailable [phone] Allergies Active Allergy Reactions Criticality Noted Date Comments Sulfamethoxazole-Trimethoprim Hives 2021 Medications atorvastatin (LIPITOR) 10 MG Tablet Take 10 mg by mouth daily. 11/08/2022 Active Encounters Date Type Department Care Team Description 01/28/2025 3:30 PM CDT Office Visit [facility] - Neu[facility] [address] [place] [address] Mike Austin MD Numbness and tingling (Primary Dx) Discharge Disposition: Discharged to home or Selfcare 01/28/2025 Travel from Last 3 Months Immunizations Immunization Administration Dates Next Due TDAP Vaccine 05/28/2020,05/29/2007 Family History Medical History Relation Name Comments Stroke Father Cancer Mother Relation Name Status Comments Father Alive Mother Social History Tobacco Use Types Packs/Day Years Used Date Smoking Tobacco: Former Cigarettes Q uit: 08/08/2014 Smokeless Tobacco: Never Alcohol Use Standard Drinks/Week Comments Yes 0 (1 standard drink = 0.6 oz pur e alcohol) social Sex and Gender Information Value Date Recorded Sex Assigned at Not on file Legal Sex Male 1:32 PM CDT Gender Identity Not on file Sexual Orientation Not on file Last Filed Vital Signs Vital Sign Reading Time Taken Comments Blood Pressure 122/78 01/28/2025 3:12 PM CDT Pulse 86 01/28/2025 3:12 PM CDT Temperature 36.3 C (97.4 F) 01/28/2025 3:12 PM CDT Respiratory Rate 16 01/28/2025 3:12 PM CDT Oxygen Saturation 97% 01/28/2025 3:12 PM CDT Inhaled Oxygen Concentration - - Weight 91 kg (200 lb 9.6 oz) 01/28/2025 3:12 PM CDT Height 182.9 cm (6') 01/28/2025 3:12 PM CDT Body Mass Index 27.21 01/28/2025 3:12 PM CDT Plan of Treatment Health Maintenance Due Date Last Done Comments Hepatitis C Virus (HCV) Screening 1962 Cologuard 2007 Colonoscopy 2007 Colorectal Cancer Screening 2007 Immunochemical Fecal Occult Blood 2007 Pneumococcal Immunization (5 0+ years) (1 of 1 - PCV) 2012 Zoster Immunization (1 of 2) 2012 PSA Discussion 2017 SARS-COV-2 Immunization (1 - season) 2024 Influenza Immunization (#1) 2025 Td Immunization Every 10 Yea rs (Adults With 1 Tdap) 05/28/2030 05/28/2020, 05/29/2007 Respiratory Syncytial Virus (RSV) Immunization (Adult) (1 - 1-dose 75+ series) 2037 DTaP/Tdap/Td Immunization Discontinued 2019, 05/29/2007 TdaP Immunization Discontinued 05/28/2020, 05/29/2007 Hepatitis B Immunization Aged Out No longer eligible based on patient's age to complete this topic Human Papillomavirus (HPV) Immunization Aged Out No longer eligible based on patient's age to complete this topic Meningococcal Immunization (ACWY) Aged Out No longer eligible based on patient's age to complete this topic Rotavirus Immunization Aged Out No lo nger eligible based on patient's age to complete this topic Insurance [facility] Care Teams Janitorial Cleaner Relationship Specialty Start Date End Date Keven Inman MD PCP - General Family Medicine 02/17/22 Mike Austin MD [address] [place] [address] Consulting Physician Neurology 04/19/22
[2025-03-13 07:18] VITALS: BP 134/79; PULSE 78; RESP 18; TEMP 36.2; O2SAT 98; BMI 26.4
[2025-03-13] MEDS: LACTATED RINGERS 1,000 ML 150 ML IV CONT (07:38)
--- NOTE | 2025-03-13 07:58 | P.PNAN_ITS ---
Anes - Initial Pre Proc Eval Procedure: Operation Date: 03/13/25 08:30 Proposed Procedures p Screening Colonoscopy - Heber Castano MD Date/Time: 03/13/25 07:58 Surgeon: Heber Castano MD Pre Op Diagnosis: Encounter for screening for malignant neoplasm of Patient Data Age: 64 Gender: M Height: 1.83 m Weight: 88.4 kg Last Vital Signs Temp 36.2 C L 03/13/25 07:18 Pulse 78 03/13/25 07:18 Resp 18 03/13/25 07:18 BP 134/79 03/13/25 07:18 Pulse Ox 98 03/13/25 07:18 O2 Del Method Room Air 03/13/25 07:18 Allergies Allergy/AdvReac Type Severity Reaction Status Date / Time sulfamethizole Allergy Unknown Unknown Verified 03/13/25 07:24 sulfamethoxazole Allergy Unknown RASH Verified 03/13/25 07:24 trimethoprim Allergy Unknown Unknown Verified 03/13/25 07:24 Home Medications ?Medication ?Instructions ?Recorded ?Confirmed ?Type atorvastatin 10 mg tablet 10 mg PO QHS #90 tabs 11/15/24 03/13/25 Rx Patient hx anesthesia problems: none Family hx anesthesia problems: none Results Review: All pre-operative results and documents have been reviewed as part of the pre- operative evaluation. [facility] Past Medical History Medical History (Updated 03/12/25 @ 14:46 by Huang Anders DO) Hyperlipidemia Prediabetes History of COVID-19 07/2020 History of malignant neoplasm of bladder Bladder cancer Status post TURBT and intravesical chemotherapy. Seasonal allergies Surgical History Surgical History S/P bladder tumor excision with fulguration TURBT - 01/2018 History of colonoscopy (~2011) Family History Family History Father Cerebrovascular accident Mother Stomach cancer Social History Social History Social History: The patient lives in his own home in [place]. His 89-year-old father stays there with him. He designates his brother is his surrogate decision maker and wishes to be a full code. He smoked about 3/4 of a pack of cigarettes per day for 30 years and quit in 2016. He drinks perhaps 6 alcoholic beverages a week. No drug use. Smoking packs per day: 0.75 Smoking cigarettes per day: 15.0 Years smoked: 30 Smoking pack-years: 22.50 Smoking status: Former smoker Tobacco type: cigarettes Second hand tobacco smoke exposure: No Smoking end date: 08/08/14 Alcohol intake: current Drinks per week: 2 Substance use: never Substance use type: does not use Lack of Transportation: No Lack of Food: Never True Current Housing: I Have Housing Concerned About Future Housing: No Difficulty Paying Gas/Electric Bills: No Difficulty Paying for Meds: No Currently Unemployed: No Education: Bachelor's Degree Difficulty w/ Childcare or Family Care: No Living arrangements: with family Spiritual care concerns: No Agree to blood products: Yes Anes - Eval Final PreProcedure Day of Procedure 03/13/25 07:58 Patient weight: overweight Heart: regular rate and rhythm Lungs: clear to auscultation Airway: Mallampati scale class II Neurological: alert and oriented Last oral intake: >/= 8 hours ASA classification: II Emergent: no Anesthetic plan: proceed Anesthesia type and monitoring: general GIVS and standard monitoring Results Review: All pre-operative results and documents have been reviewed as part of the pre- operative evaluation. Informed Consent: The patient's anesthetic plan and its attendant risks and benefits were discussed with the patient/family/POA. Questions were solicited and answers provided to the satisfaction of the patient/family/POA.
--- NOTE | 2025-03-13 08:22 | PM.IMHP ---
H&P: HPI History of Present Illness Date/Time: 03/13/25 08:22 Chief Complaint: Screening colonoscopy Narrative: This is the patient's 2nd colonoscopy. There are no GI symptoms and there is no family history of colorectal cancer. Review of Systems Review of Systems: All systems reviewed & are unremarkable except as noted in HPI and below [facility] Past Medical History Medical History (Updated 03/13/25 @ 08:23 by Heber Castano MD) Hyperlipidemia Prediabetes History of COVID-19 07/2020 History of malignant neoplasm of bladder Bladder cancer Status post TURBT and intravesical chemotherapy. Seasonal allergies Surgical History Surgical History S/P bladder tumor excision with fulguration TURBT - 01/2018 History of colonoscopy (~2011) Family History Family History Father Cerebrovascular accident Mother Stomach cancer Social History Social History Social History: The patient lives in his own home in [place]. His 89-year-old father stays there with him. He designates his brother is his surrogate decision maker and wishes to be a full code. He smoked about 3/4 of a pack of cigarettes per day for 30 years and quit in 2015. He drinks perhaps 6 alcoholic beverages a week. No drug use. Smoking packs per day: 0.75 Smoking cigarettes per day: 15.0 Years smoked: 30 Smoking pack-years: 22.50 Smoking status: Former smoker Tobacco type: cigarettes Second hand tobacco smoke exposure: No Smoking end date: 08/08/14 Alcohol intake: current Drinks per week: 2 Substance use: never Substance use type: does not use Lack of Transportation: No Lack of Food: Never True Current Housing: I Have Housing Concerned About Future Housing: No Difficulty Paying Gas/Electric Bills: No Difficulty Paying for Meds: No Currently Unemployed: No Education: Bachelor's Degree Difficulty w/ Childcare or Family Care: No Living arrangements: with family Spiritual care concerns: No Agree to blood products: Yes Meds Home Medications and Allergies Home Medications ?Medication ?Instructions ?Recorded ?Confirmed ?Type atorvastatin 10 mg tablet 10 mg PO QHS #90 tabs 11/15/24 03/13/25 Rx Allergies Allergy/AdvReac Type Severity Reaction Status Date / Time sulfamethizole Allergy Unknown Unknown Verified 03/13/25 07:24 sulfamethoxazole Allergy Unknown RASH Verified 03/13/25 07:24 trimethoprim Allergy Unknown Unknown Verified 03/13/25 07:24 Vital Signs Vital Signs - 24 hr 03/13/25 07:18 Temperature 97.1 F L Pulse Rate 78 Respiratory Rate 18 Blood Pressure 134/79 Pulse Oximetry 98 Oxygen Delivery Room Air Exam Const: General: cooperative and healthy appearing Resp: Effort & Inspection: normal respiratory effort and able to speak in complete sentences Auscultation: clear to auscultation bilaterally Cardio: Rate: regular rate Rhythm: regular rhythm GI: Inspection: normal to inspection GI Palp: No No hepatosplenomegaly present Auscultation: normal bowel sounds Rectal Exam: deferred Skin: General skin exam: normal color Psych: Appearance: grossly normal Mental Status: mental status grossly normal Assessment and Plan Assessment and plan (1) Encounter for screening colonoscopy: Code(s): Z12.11 - Encounter for screening for malignant neoplasm of colon Status: Acute Assessment and Plan: The patient is deemed a good candidate for the procedure. Consent signed. Will proceed.
[2025-03-13 08:50] VITALS: BP 99/69; PULSE 61; RESP 19; O2SAT 99
[2025-03-13 09:00] VITALS: BP 111/74; PULSE 62; RESP 19; O2SAT 99
[2025-03-13 09:10] VITALS: BP 127/88; PULSE 67; RESP 88; O2SAT 99
== END 2025-03-13 09:17 | disposition home or self-care (01) ==
PROVIDERS: PCP Family Medicine; Referring Provider Family Medicine; Visit Provider Internal Medicine Gastroenterology
PROC: 0DJD8ZZ Inspection of Lower Intestinal Tract, Via Natural or Artificial Opening Endoscopic (ICD-10-PCS; CPT 45378; principal; 2025-03-13 08:30)
DX: Z12.11 Encounter for screening for malignant neoplasm of colon (principal); K57.30 Diverticulosis of large intestine without perforation or abscess without bleeding; Z87.891 Personal history of nicotine dependence
CPT/HCPCS: 45378; J2704; J7120